=== PATIENT | female | born 1945 | race Caucasian/White ===

== ENCOUNTER 2016-11-18 07:48 | Day surgery (SDC) ==
[2016-11-18] MEDS ORDERED: ALBUTEROL 0.083% NEB NEB STA (08:16)
[2016-11-18] MEDS ORDERED: LIDOCAINE 1% 20 ML MDV ID ONE (09:09)
[2016-11-18] MEDS ORDERED: DIPRIVAN 20 ML VIAL IVP ONE (09:40)
[2016-11-18] MEDS ORDERED: VERSED ONE (09:40)
[2016-11-18 11:16] VITALS: BP 105/67; TEMP 98.2
--- NOTE | 2016-11-19 11:36 | OP ---
INDICATIONS FOR PROCEDURE: 71 year old female with a past history of abnormal polyps with the last colonoscopy five years ago presents for colonoscopy exam. MEDICATIONS: SEE ANESTHESIA NOTES. PROCEDURE: COLONOSCOPY, SNARE POLYPECTOMY. REPORT: The risks, benefits, alternatives and limitations were discussed in detail with the patient. Informed consent was obtained. After adequate sedation was achieved, a digital rectal exam revealed good tone, no masses. The colonoscope was introduced into the rectum and advanced under direct visual guidance to the cecum. The cecum was identified by the appendiceal orifice and IC valve. I then saw a small polyp in the distal ascending colon about 5-6mm in size it was sessile it had a little bit of a mucus adherent cap. I removed this by snare technique. I then slowly withdrew the scope in circumferential manner and examined the mucosa quiet carefully. I looked on the proximal distal sides of the folds of flexures as best as possible. I inserted retroflex scope in the right colon and again in the left colon. There were a few diverticuli noted in the sigmoid colon and no other abnormalities note on clear and retroflex view of the anal canal. The prep was good. The withdraw time was 6 minutes and 10 seconds. The patient tolerated the procedure well with stable vital signs and pulse oximetry throughout. IMPRESSION: 1. Small polyp removed 2. Diverticulosis RECOMMENDATIONS: 1. High fiber diet 2. Office visit as needed 3. Colonoscopy examination again in 5 five or sooner if signs or symptoms would indicate otherwise CC: Dr. Yasir FIORE
== END 2016-11-18 11:10 | disposition home or self-care (01) ==
LOC: SURG 07:48
PROVIDERS: ATTEND Internal Medicine Gastroenterology
DX: Z09 Encounter for follow-up examination after completed treatment for conditions other than malignant neoplasm (principal); Z86.010 Personal history of colon polyps; D12.2 Benign neoplasm of ascending colon; K57.30 Diverticulosis of large intestine without perforation or abscess without bleeding